=== PATIENT | female | born 1995 | race Caucasian/White ===

== ENCOUNTER 2024-07-26 10:43 | Emergency (ER) | payer OTHER ==
[~2024-07-26] VITALS: Ht 172.7 cm; Wt 57.5 kg
[2024-07-26] MEDS ORDERED: HYDROmorphone HCL 1 MG/ML SYR IV PRN (11:00)
[2024-07-26] MEDS ORDERED: ondansetron HCL 4 MG/2 ML VIAL IV ONE (11:00)
[2024-07-26] MEDS ORDERED: ONDANSETRON ODT4 MG PO (13:54)
[2024-07-26] MEDS ORDERED: HYDROCODON-ACE1 EA10 PO (13:54)
[2024-07-26] MEDS ORDERED: HYDROCODONE/ACETA 5/325 TAB PO ONE (14:15)
[2024-07-26 14:24] VITALS: BP 121/64
== END 2024-07-26 14:26 | disposition home or self-care (01) ==
LOC: ED 10:43
DX: S83.91XA Sprain of unspecified site of right knee, initial encounter (principal); S80.11XA Contusion of right lower leg, initial encounter; W55.12XA Struck by horse, initial encounter
CPT/HCPCS: 36415; 73502; 73552; 73590; 73610; 84703; 96374; 96375; 99283-25; J1170; J2405